=== PATIENT | male | born 1970 | race Caucasian/White ===

== ENCOUNTER → 2017-02-15 | Outpatient (CLI) | payer MEDICAID | LOC: FIMAGING 14:46 | PROVIDERS: ATTEND Physical Medicine & Rehabilitation | DX: M25.521 Pain in right elbow (principal); M25.421 Effusion, right elbow; M24.021 Loose body in right elbow; M77.11 Lateral epicondylitis, right elbow ==

== ENCOUNTER → 2017-03-23 | Outpatient (CLI) | payer MEDICAID | LOC: FIMAGING 17:27 | PROVIDERS: ATTEND Physical Medicine & Rehabilitation | DX: M51.36 Other intervertebral disc degeneration, lumbar region (principal); M51.37 Other intervertebral disc degeneration, lumbosacral region; M47.896 Other spondylosis, lumbar region; M47.897 Other spondylosis, lumbosacral region ==

== ENCOUNTER → 2017-04-21 | Outpatient (CLI) | payer MEDICAID | LOC: FIMAGING 16:11 | PROVIDERS: ATTEND Physical Medicine & Rehabilitation | DX: M25.511 Pain in right shoulder (principal); M75.21 Bicipital tendinitis, right shoulder; M75.51 Bursitis of right shoulder; M19.011 Primary osteoarthritis, right shoulder; S46.811A Strain of other muscles, fascia and tendons at shoulder and upper arm level, right arm, initial encounter; M75.81 Other shoulder lesions, right shoulder ==